=== PATIENT | female | born 1975 | race Caucasian/White ===

== ENCOUNTER 2019-11-19 07:49 | Emergency (ER) | payer SELFPAY | END 2019-11-19 08:23 | disposition home or self-care (01) | LOC: ERS 07:49 | DX: L02.414 Cutaneous abscess of left upper limb (principal); L02.415 Cutaneous abscess of right lower limb; F32.9 Major depressive disorder, single episode, unspecified; F17.210 Nicotine dependence, cigarettes, uncomplicated; Z79.899 Other long term (current) drug therapy | CPT/HCPCS: 99283 ==